=== PATIENT | female | born 1950 | race Caucasian/White ===

== ENCOUNTER → 2016-11-24 | Outpatient (CLI) | payer MEDICARE ==
--- NOTE | 2016-11-24 14:45 | MR ---
EXAMINATION TYPE: MR shoulder LT wo con DATE OF EXAM: 11/24/2016 11:50 AM COMPARISON: NONE HISTORY: Strain of muscle(s) and tendon(s) of the rotator cuff, weakness, pain left shoulder x 2.5 mo nths. TECHNIQUE: Multiplanar, multisequence imaging of the left shoulder is performed without contrast. FINDINGS: Rotator Cuff: There is complete disruption of the supraspinatus tendon. There is tendon retraction to nearly the acromioclavicular junction level. Fatty infiltration within the supraspinatus muscle is e vident. There may be some early fatty infiltration within the subscapularis muscle Acromioclavicular Joint: Hypertrophy without inferior spurring. Some superior acromioclavicular joint spurring is noted. Glenohumeral Joint: Glenoid labrum appears intact. Humeral head is elevated in relation to the glenoi d. Labrum: The labrum appears grossly intact given limitation of non-arthrogram study. Biceps Tendon: Long head of the biceps tendon appears to be anteriorly displaced from the bicipital g roove and is at the anterior spine. The tendon itself appears intact. Bone marrow signal: No focal abnormal marrow signal is appreciated. Other: There is a moderate joint effusion. Posterior subdeltoid fluid is noted adjacent to the rotato r cuff. Fluid is within the bicipital groove. IMPRESSION: 1. Complete tear of the supraspinatus tendon. 2. Retraction of the tendon to the acromioclavicular junction. 3. Fatty infiltration of the supraspinatus muscle. Some subscapularis muscle fatty infiltration may b e present. 4. Dislocation of the long head biceps tendon from the bicipital groove. 5. Moderate joint effusion #6 subluxation of the humeral head in relation to the glenoid
== END | disposition home or self-care (01) ==
LOC: RADMRIMAIN 11:10
PROVIDERS: ATTEND Family Medicine
DX: S46.912A Strain of unspecified muscle, fascia and tendon at shoulder and upper arm level, left arm, initial encounter (principal)

== ENCOUNTER → 2016-12-08 | Outpatient (CLI) | payer MEDICARE ==
[2016-12-08 13:51] LABS: Basophils # (A) 0.1 k/uL (0-0.2); Basophils % (A) 1 %; CH 30.5; CHCM 32.1; Eosinophils # (A) 0.1 k/uL (0-0.7); Eosinophils % (A) 1 %; HCT 46.2 % (34.0-46.0); HDW 2.37; HGB 14.5 gm/dL (11.4-16.0); Luc # (Auto) 0.21; Luc % (Auto) 3; Lymphocytes % (A) 24 %; MCH 29.9 pg (25.0-35.0); MCHC 31.3 g/dL (31.0-37.0); MCV 95.5 fL (80.0-100.0); Mean Platelet Volume 6.6; Monocytes # (A) 0.4 k/uL (0-1.0); Monocytes % (A) 4 %; Neutrophils # (A) 5.7 k/uL (1.3-7.7); Neutrophils % (A) 68 %; RBC 4.84 m/uL (3.80-5.40); RDW 13.6 % (11.5-15.5); WBC 8.5 k/uL (3.8-10.6); WBC (Perox) 8.71
[2016-12-08 14:05] LABS: Potassium 4.3 mmol/L (3.5-5.1)
== END | disposition home or self-care (01) ==
LOC: LABPAT 13:12
PROVIDERS: ATTEND Orthopaedic Surgery
DX: Z01.812 Encounter for preprocedural laboratory examination (principal); M75.42 Impingement syndrome of left shoulder
CPT/HCPCS: 80051; 85025

== ENCOUNTER 2016-12-23 07:23 | Day surgery (SDC) | payer MEDICARE ==
[2016-12-20 15:03] VITALS: BMI 34.9
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
[~2016-12-23 07:23] MED LIST: DEXAMETHASONE SOD PHOSPHATE 10 MG/ML 1 ML VIAL IV ONE; LACTATED RINGERS 1,000 ML IV SCH; MIDAZOLAM 2 MG/2 ML VIAL IV PRN; ceFAZolin 2 GM in SODIUM CHLORIDE 0.9% 100 ML IVPB ONE
[2016-12-23] MEDS: ONDANSETRON 4 MG/2 ML VIAL IVP ONE ×2 (07:45→12:11)
[2016-12-23] MEDS ORDERED: LIDOCAINE 1% 20 ML VIAL (10MG/ML) FOR IV START INTRADERMA ONE (07:45)
[2016-12-23] MEDS ORDERED: fentaNYL (PF) 50 MCG/ML 2 ML AMP IV ONE (08:06)
[2016-12-23] MEDS ORDERED: fentaNYL (PF) 50 MCG/ML 2 ML AMP ONE (09:01)
[2016-12-23] MEDS ORDERED: ROPIVACAINE 5 MG/ML 30 ML VIAL ONE (09:01)
[2016-12-23] MEDS ORDERED: ePHEDrine 50 MG/ML 1 ML AMP ONE (09:01)
[2016-12-23] MEDS ORDERED: LIDOCAINE 2%-EPI 1:100,000 20 ML VIAL ONE (09:01)
[2016-12-23] MEDS ORDERED: SUCCINYLCHOLINE CHLORIDE 100 MG/5 ML SYR IV ONE (09:01)
[2016-12-23] MEDS ORDERED: MIDAZOLAM 2 MG/2 ML VIAL ONE (09:01)
[2016-12-23] MEDS ORDERED: PROPOFOL 10 MG/ML 20 ML VIAL IV ONE (09:01)
[2016-12-23] MEDS ORDERED: LIDOCAINE 1% INJ 10MG/ML (20 ML MDV) ONE (09:01)
[2016-12-23] MEDS ORDERED: EPINEPHrine (PF) 1 ML in SODIUM CHLORIDE 0.9% IRRIGATIO 3,000 ML IRRIGATION ONE ×4 (09:36)
[2016-12-23] MEDS ORDERED: LACTATED RINGERS 1,000 ML IV ONE (10:36)
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
[2016-12-23 11:39] VITALS: TEMP 96.9
[2016-12-23] MEDS: HYDROmorphone 1 MG/ML 1 ML SYRINGE IVP PRN ×2 (12:04→12:23)
[2016-12-23] MEDS ORDERED: ONDANSETRON 4 MG/2 ML VIAL IVP ONE (12:53)
[2016-12-23] MEDS ORDERED: PROMETHAZINE INJ 25 MG/ML 1 ML VIAL IVPB ONE (13:39)
[2016-12-23 15:29] VITALS: BP 121/73; PULSE 91; RESP 18
== END 2016-12-23 14:50 | disposition home or self-care (01) ==
LOC: OR 07:23
PROVIDERS: ATTEND Orthopaedic Surgery
DX: S46.012A Strain of muscle(s) and tendon(s) of the rotator cuff of left shoulder, initial encounter (principal); S46.112A Strain of muscle, fascia and tendon of long head of biceps, left arm, initial encounter; S43.402A Unspecified sprain of left shoulder joint, initial encounter; V29.88XA Motorcycle rider (driver) (passenger) injured in other specified transport accidents, initial encounter; I10 Essential (primary) hypertension; E03.9 Hypothyroidism, unspecified; Z98.84 Bariatric surgery status; Z79.82 Long term (current) use of aspirin; Z79.1 Long term (current) use of non-steroidal anti-inflammatories (NSAID); Z79.899 Other long term (current) drug therapy
CPT/HCPCS: 64415; 29826; 29827; C1713 ×5; J2250; J1100; J2550; J0690; J2405; J0171; J2001; J3010; J1170; J2795; J0330; J2704

== ENCOUNTER → 2017-05-02 | Outpatient (CLI) | payer MEDICARE ==
[2017-05-02 15:48] VITALS: BP 142/76; PULSE 70; RESP 20; TEMP 97.9; BMI 37.1
--- NOTE | 2017-05-02 16:31 | P.BASOAP ---
Subjective Principal diagnosis: Morbid obesity Patient with poor follow-up. The patient has had frequent episodes of vomiting and dysphagia. This happens almost once or twice a week at this point. She started to eat high calorie foods because it passes through the band site easier. The patient has gained approximately 25 pounds since her last visit. She is still down from her preoperative weight of 290 and is currently on 223. The patient does not want the band emptied or removed. She is agreeable to an band loosening. She did have an upper GI when she was seen last 4 years ago and that was normal. Objective - Vital Signs Vital signs: Vital Signs Temp 97.9 F 05/02/17 15:40 Pulse 70 05/02/17 15:40 Resp 20 05/02/17 15:40 BP 142/76 05/02/17 15:40 Pulse Ox Intake & Output 05/01/17 05/02/17 05/02/17 18:59 06:59 18:59 Weight 101.196 kg - Exam Abdomen: Soft, nontender, nondistended Assessment/Plan (1) Morbid obesity Narrative/Plan: Plan will be loosened at this time. If the patient's symptoms persist we'll repeat upper GI. The patient's lap band port was palpated. The site was aseptically prepped. 1% lidocaine was infiltrated into the subcutaneous tissues through a diabetic syringe. The Abebe needle was advanced into the port. Aspiration took place. A total of 0.7 ml of fluid was evacuated, 5.5 mL left in band. Pressure was held and a sterile dressing was applied. Plan: Date: 05/02/17 Initial Weight: 101.196 kg Initial BMI: 37.1 Current Weight: 101.196 kg Current BMI: 37.1 Type of Surgery: Total Volume in Band: -0.7 Previous Volume: 0 Volume Removed: 0.7 Volume Added: 0 Band Size:
== END | disposition home or self-care (01) ==
LOC: BARWHC3 14:38
PROVIDERS: ATTEND Surgery
DX: E66.01 Morbid (severe) obesity due to excess calories (principal)
CPT/HCPCS: 99202

== ENCOUNTER → 2017-11-09 | Outpatient (CLI) | payer MEDICARE ==
[2017-11-09 09:19] LABS: Basophils # (A) 0.2 k/uL (0-0.2); Basophils % (A) 2 %; CH 30.3; CHCM 31.4; Eosinophils # (A) 0.2 k/uL (0-0.7); Eosinophils % (A) 2 %; HCT 47.6 % (34.0-46.0); HDW 2.42; HGB 14.4 gm/dL (11.4-16.0); Luc # (Auto) 0.16; Luc % (Auto) 2; Lymphocytes # (A) 2.1 k/uL (1.0-4.8); Lymphocytes % (A) 27 %; MCH 29.4 pg (25.0-35.0); MCHC 30.2 g/dL (31.0-37.0); MCV 97.4 fL (80.0-100.0); Mean Platelet Volume 7.5; Monocytes # (A) 0.4 k/uL (0-1.0); Monocytes % (A) 5 %; Neutrophils # (A) 4.8 k/uL (1.3-7.7); Neutrophils % (A) 62 %; RBC 4.88 m/uL (3.80-5.40); RDW 15.3 % (11.5-15.5); WBC 7.8 k/uL (3.8-10.6); WBC (Perox) 7.77
[2017-11-09 09:39] LABS: ALT 30 U/L (9-52); AST 26 U/L (14-36); Alkaline Phosphatase 89 U/L (38-126); Anion Gap 8 mmol/L; Blood Urea Nitrogen 11 mg/dL (7-17); Carbon Dioxide 30 mmol/L (22-30); Chloride 102 mmol/L (98-107); Cholesterol 197 mg/dL (<200); Glucose 104 mg/dL (74-99); HDL Cholesterol 84 mg/dL (40-60); Non-African American GFR(MDRD) >60 (>60 ml/min/1.73 sqM); Potassium 4.4 mmol/L (3.5-5.1); Sodium 140 mmol/L (137-145); Total Bilirubin 0.4 mg/dL (0.2-1.3); Total Protein 7.5 g/dL (6.3-8.2)
== END | disposition home or self-care (01) ==
LOC: LABWHC1 08:36
PROVIDERS: ATTEND Family Medicine
DX: Z00.00 Encounter for general adult medical examination without abnormal findings (principal); E03.9 Hypothyroidism, unspecified; I10 Essential (primary) hypertension; Z79.82 Long term (current) use of aspirin
CPT/HCPCS: 36415; 80053; 80061; 84439; 84443; 85025; 86803

== ENCOUNTER → 2017-12-15 | Outpatient (CLI) | payer MEDICARE ==
--- NOTE | 2017-12-19 10:18 | MM ---
Reason for exam: screening (asymptomatic). Last mammogram was performed 1 year and 4 months ago. History: Patient is postmenopausal and history of other cancer. Family history of breast cancer in maternal aunt. Physical Findings: A clinical breast exam by your physician is recommended on an annual basis and results should be correlated with mammographic findings. MG 3D Screening Mammo W/Cad Bilateral CC and MLO view(s) were taken. Prior study comparison: August 11, 2016, bilateral MG 3d screening mammo w/cad. July 14, 2014, mammogram, performed at [facility]. Finding: There is an intermediate concern, suspicious equal density (isodense), indistinct lobulated mass located 9 cm from the nipple in the upper outer quadrant, middle position of the left breast consistent with associated punctate calcifications. New finding since August 11, 2016 and July 14, 2014. ASSESSMENT: Incomplete: need additional imaging evaluation, BI-RAD 0 RECOMMENDATION: Special view mammogram of the left breast. If lesion persists on supplemental views, image directed ultrasound is recommended. [facility] will attempt to contact patient to return for supplemental views and ultrasound if indicated.
== END | disposition home or self-care (01) ==
LOC: RADMAMWWP 15:38
PROVIDERS: ATTEND Family Medicine
DX: Z12.31 Encounter for screening mammogram for malignant neoplasm of breast (principal)
CPT/HCPCS: 77063; 77067

== ENCOUNTER → 2018-01-01 | Day surgery (SDC) | payer MEDICARE ==
[2018-01-01 13:47] VITALS: RESP 16; TEMP 98; BMI 35.2
[2018-01-01 15:03] VITALS: BP 168/87; PULSE 70
--- NOTE | 2018-01-01 18:19 | MM ---
EXAMINATION TYPE: MG stereo VAD BX LT DATE OF EXAM: 01/01/2018 COMPARISON: 12/15/2017 and 12/25/2017 CLINICAL HISTORY: 67-year-old female referred for biopsy of left breast microcalcifications TECHNIQUE: Stereotactic guided core biopsy of the left breast. FINDINGS: The procedure of stereotactic guided core biopsy was explained to the patient. Benefits, alternatives, and risks were discussed. An informed consent was then obtained. [facility]. Shortness pathway was a CC from above approach. I performed the localization followed by the procedure. A vacuum assisted biopsy gun was used to obtain 6 core samples. The patient tolerated the procedure well without any immediate complication. The patient was kept in the radiology department for short stay after the procedure and then discharged home in stable condition. Targeted calcifications are identified in specimen mammogram. Post biopsy mammogram shows approximately 1.5 to 2 cm of superior migration relative to the targeted area of concern on the preprocedure images. A solitary round calcification booth the site near the targeted area. IMPRESSION: SUCCESSFUL, UNCOMPLICATED STEREOTACTIC GUIDED CORE BIOPSY OF LEFT BREAST UPPER OUTER QUADRANT MICROCALCIFICATIONS. NOTE 1.5 TO 2 CM OF SUPERIOR CLIP MIGRATION. A RESIDUAL ROUND CALCIFICATION BOOTH THE SITE NEAR THE TARGETED AREA. FULL PATHOLOGY RESULTS TO FOLLOW. Pathology Results: Benign BREAST, LEFT, CORE BIOPSY: FIBROADENOMA WITH CALCIFICATIONS AND BACKGROUND FIBROCYSTIC CHANGES. Recommendation Follow up mammogram of the left breast in 6 months. MTDD
== END ==
LOC: RADMAMWWP 13:15
PROVIDERS: ATTEND Surgery
DX: D24.2 Benign neoplasm of left breast (principal); N60.12 Diffuse cystic mastopathy of left breast; R92.1 Mammographic calcification found on diagnostic imaging of breast; Z85.828 Personal history of other malignant neoplasm of skin; Z80.3 Family history of malignant neoplasm of breast
CPT/HCPCS: 88305; 19081; A4648; J2001

== ENCOUNTER → 2018-07-02 | Outpatient (CLI) | payer MEDICARE ==
--- NOTE | 2018-07-03 09:47 | MM ---
Reason for exam: follow-up at short interval from prior study. Last mammogram was performed 6 months ago. History: Patient is postmenopausal and history of other cancer. Family history of breast cancer in maternal aunt. Benign MG stereo VAD BX LT of the left breast, January 01, 2018. Physical Findings: Nurse did not find any significant physical abnormalities on exam. MG 3D Diag Mammo W/Cad LT CC and MLO view(s) were taken of the left breast. Prior study comparison: December 25, 2017, left breast MG 3d work up w/cad LT. December 15, 2017, bilateral MG 3d screening mammo w/cad. August 11, 2016, bilateral MG 3d screening mammo w/cad. There are scattered fibroglandular densities. Left post biopsy change. Superior marker migration noted. These results were verbally communicated with the patient and result sheet given to the patient on 07/02/18. ASSESSMENT: Benign, BI-RAD 2 RECOMMENDATION: Return to routine screening mammogram schedule for both breasts. Patient will be due in November 2018 for her bilateral screeming.
== END | disposition home or self-care (01) ==
LOC: RADMAMWWP 09:00
PROVIDERS: ATTEND Surgery
DX: R92.8 Other abnormal and inconclusive findings on diagnostic imaging of breast (principal)
CPT/HCPCS: 77065; G0279; 77061

== ENCOUNTER → 2018-11-27 | Outpatient (CLI) | payer MEDICARE ==
--- NOTE | 2018-11-27 15:29 | P.BASOAP ---
Subjective Progress Note Date: 11/27/18 Principal diagnosis: Abdominal pain Patient here today in the bariatric clinic for evaluation of abdominal pain. Last week she had 2-3 days of intermittent upper abdominal pain with radiation to the back. She had episodes of nausea and vomiting. Pain was crampy at times. No history of similar events in the past. She went to the ER however there are quite busy so she went home as her pain improved. No rectal bleeding or melena. No fevers. Patient is known to our office from previous lap band placement. Last visit in April 2017. At that time band was loosened from 6.2- 5.5 mL. Patient feels her level of restriction now was adequate. Rare episodes of dysphagia. She has an elective colonoscopy in January scheduled. Objective - Exam Abdomen: Soft, nontender, nondistended Assessment/Plan (1) Upper abdominal pain Narrative/Plan: At this time in order to evaluate the patient's pain will order ultrasound abdomen. Her pain is currently absent. If the ultrasound is negative would continue observation. If her pain recurs however would add CAT scan abdomen and pelvis. We'll also add EGD to her upcoming colonoscopy. We'll keep the band at 5.5 mL for now. Plan: Date: Initial Weight: 101.196 kg Initial BMI: Current Weight: Current BMI: Type of Surgery: Total Volume in Band: -0.7 Previous Volume: Volume Removed: Volume Added: Band Size:
[2018-11-27 15:44] VITALS: BP 165/91; PULSE 80; RESP 16; TEMP 98.4; BMI 35.2
== END | disposition home or self-care (01) ==
LOC: BARWHC3 14:33
PROVIDERS: ATTEND Surgery
DX: R10.10 Upper abdominal pain, unspecified (principal)
CPT/HCPCS: 99212

== ENCOUNTER → 2018-11-28 | Outpatient (CLI) | payer MEDICARE ==
--- NOTE | 2018-11-28 08:50 | US ---
EXAMINATION TYPE: US gallbladder DATE OF EXAM: 11/28/2018 COMPARISON: NONE CLINICAL HISTORY: R10.11 Right Upper Quad pain. Epigastric pain, NPO EXAM MEASUREMENTS: Liver Length: 15.7 cm Gallbladder Wall: 0.1 cm CHD: 0.6 cm Right Kidney: 11.4 x 4.9 x 4.6 cm Pancreas: Tail obscured by overlying bowel gas Liver: wnl Gallbladder: wnl Evidence for sonographic Malone's sign: neg CBD: Obscured by overlying bowel gas Right Kidney: Lateral complex lesion seen in mid kidney - 2.7x 2.2 x 2.5 cm IMPRESSION: 1. Complex right renal lesion measuring up to 2.8 cm for which further characterization with three-ph ase enhanced CT abdomen is recommended. 2. No sonographic evidence of cholelithiasis or acute cholecystitis. Common hepatic duct is within no rmal limits for the patient's age. Common bile duct is obscured by bowel gas.
== END | disposition home or self-care (01) ==
LOC: RADUSWWP 07:20
PROVIDERS: ATTEND Surgery
DX: N28.9 Disorder of kidney and ureter, unspecified (principal)
CPT/HCPCS: 76705

== ENCOUNTER → 2018-12-07 | Outpatient (CLI) | payer MEDICARE ==
--- NOTE | 2018-12-07 16:29 | CT ---
EXAMINATION TYPE: CT abdomen wo/w con DATE OF EXAM: 12/07/2018 COMPARISON: None HISTORY: right side renal lesion CT DLP: 1486.2 mGycm CONTRAST: CT scan of the abdomen and pelvis is performed with Oral Contrast and with IV Contrast, patient injec kika with 100 mL of Isovue 300. FINDINGS: LUNG BASES-: No visible nodule. No infiltrate. LIVER/GB: No calcified gallstones. No space occupying hepatic lesion. Biliary tree is of normal ca liber. PANCREAS: No inflammation. No distinct mass. SPLEEN: No splenic enlargement. No lesion seen. ADRENALS: No nodule. No thickening. KIDNEYS/BLADDER: No hydronephrosis. No nephrolithiasis. Simple right renal cyst measuring 2.5 cm. N o complicating factors. No solid mass is identified. No additional lesions appreciated at this time. Hounsfield unit measurement of 7. BOWEL: Normal appendix. Normal bowel caliber. No inflammation. Gastric banding device noted. LYMPH NODES: No greater than 1cm abdominal or pelvic lymph nodes are appreciated. AORTA: No significant abnormality. OSSEOUS STRUCTURES: No significant abnormality is seen. OTHER: No significant additional abnormality is seen. IMPRESSION: 1. Simple appearing cyst right kidney.
== END | disposition home or self-care (01) ==
LOC: RADCTMAIN 14:45
PROVIDERS: ATTEND Surgery
DX: N28.1 Cyst of kidney, acquired (principal)
CPT/HCPCS: 82565; 84520; 74170; 36415; Q9967

== ENCOUNTER → 2018-12-20 | Outpatient (CLI) | payer MEDICARE ==
--- NOTE | 2018-12-20 16:08 | BD ---
EXAMINATION TYPE: Axial Bone Density DATE OF EXAM: 12/20/2018 COMPARISON: NONE CLINICAL HISTORY: Height: 5 FT 4 IN Weight: 212 FRAX RISK QUESTIONS: RISK FACTORS HISTORY OF: Active: YES Postmenopausal woman: AGE 48 MEDICATIONS: Thyroid Medications: YES Which medication: LEVOTHYROXINE How Long: APPROX 10 YEARS Additional Medications: LEVOTHYROXINE, AMLODIPINE,VIT D , BABY ASPIRIN Additional History: PT HAD LAP BAND 10 YEARS AGO EXAM MEASUREMENTS: Bone mineral densitometry was performed using the [employer]. Bone mineral density as measured about the Lumbar spine is: ----- L1-L4(G/cm2): 1.270 T Score Values are as follows: ----- L2: -0.2 ----- L3: 1.2 ----- L4: 1.5 ----- L1-L4: 0.8 BASELINE Bone mineral density about the R hip (g/cm2): 0.846 Bone mineral density about the L hip (g/cm2): 0.863 T Score values are as follows: -----R Neck: -1.4 -----L Neck: -1.3 -----R Total: -0.8 -----L Total: -1.1 BASELINE IMPRESSION: Osteopenia (T Score between -2.5 and -1). There is slightly increased risk of fracture and the patient may be considered for treatment. Re-Screen 2-5 years. NOTE: T-SCORE=SD OF THE YOUNG ADULT MEAN.
== END ==
LOC: RADBDWWP 14:10
PROVIDERS: ATTEND Family Medicine
DX: M85.80 Other specified disorders of bone density and structure, unspecified site (principal)
CPT/HCPCS: 77080

== ENCOUNTER → 2021-02-24 | Outpatient (CLI) | payer MEDICARE ==
--- NOTE | 2021-02-25 11:01 | BD ---
EXAMINATION TYPE: Axial Bone Density DATE OF EXAM: 02/24/2021 COMPARISON: NONE CLINICAL HISTORY: Height: 65 Weight: 209.4 FRAX RISK QUESTIONS: Alcohol (3 or more units per day): no Family History (Parent hip fracture): no Glucocorticoids (More than 3mos): no (Ex: prednisone, prednisolone, methylprednisolone, dexamethasone, and hydrocortisone). History of Fracture in Adulthood: no Secondary Osteoporosis: 1. Type 1 Diabetes: no 2. Hyperthyroidism: no 3. Menopause before 45: no 4. Malnutrition: no 5. Chronic liver disease: no Rheumatoid Arthritis: no Current Tobacco Use: no RISK FACTORS HISTORY OF: Surgery to Spine/Hip(right/left)/Wrist (right/left): no Family History of Osteoporosis: no Active: yes Diet low in dairy products/other sources of calcium: yes Postmenopausal woman: late age 39;s Lost more than 2 inches in height since high school: no MEDICATIONS:blood pressure meds, vit d, Thyroid Medications: synthroid How Lon years Additional History: EXAM MEASUREMENTS: Bone mineral densitometry was performed using the [employer] System. Bone mineral density as measured about the Lumbar spine is: ----- L1-L4(G/cm2): 1.311 T Score Values are as follows: ----- L2: -0.1 ----- L3: 1.9 ----- L4: 1.7 ----- L1-L4: 1.1 Bone mineral density : baseline Bone mineral density about the R hip (g/cm2): 0.873 Bone mineral density about the L hip (g/cm2): 0.834 T Score values are as follows: -----R Neck: -1.2 -----L Neck: -1.5 -----R Total: -0.9 -----L Total: -1.5 Bone mineral density : baseline IMPRESSION: Osteopenia NOTE: T-SCORE=SD OF THE YOUNG ADULT MEAN.
--- NOTE | 2021-02-26 12:12 | MM ---
Reason for exam: screening (asymptomatic). Last mammogram was performed 2 years and 8 months ago. History: Patient is postmenopausal and history of other cancer. Family history of breast cancer in maternal aunt. Benign MG stereo VAD BX LT of the left breast, January 01, 2018. Physical Findings: A clinical breast exam by your physician is recommended on an annual basis and results should be correlated with mammographic findings. MG 3D Screening Mammo W/Cad Bilateral CC and MLO view(s) were taken. Prior study comparison: July 02, 2018, left breast MG 3d diag mammo w/cad LT. December 25, 2017, left breast MG 3d work up w/cad LT. There are scattered fibroglandular densities. Previous mammotome biopsy in the left breast with stable associated asymmetric density on the CC view. No significant changes when compared with prior studies. ASSESSMENT: Benign, BI-RAD 2 RECOMMENDATION: Routine screening mammogram of both breasts in 1 year.
== END | disposition home or self-care (01) ==
LOC: RADMAMWWP 15:46
PROVIDERS: ATTEND Family Medicine
DX: Z12.31 Encounter for screening mammogram for malignant neoplasm of breast (principal); M85.89 Other specified disorders of bone density and structure, multiple sites; Z78.0 Asymptomatic menopausal state; Z80.3 Family history of malignant neoplasm of breast
CPT/HCPCS: 77063; 77067; 77080

== ENCOUNTER 2021-06-14 14:18 | Emergency (ER) | payer OTHER, MEDICARE ==
[2021-06-14 14:26] LABS: Glucose,Whole Blood 121 mg/dL (75-99)
[2021-06-14] MEDS ORDERED: DIPH,PERTUS(ACELL)TETVAC-LF 0.5 ML VIAL IM ONE (14:28)
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
[2021-06-14 14:49] LABS: Basophils # (A) 0.1 k/uL (0-0.2); Basophils % (A) 0 %; Eosinophils # (A) 0.1 k/uL (0-0.7); Eosinophils % (A) 1 %; HCT 39.8 % (34.0-46.0); HGB 12.8 gm/dL (11.4-16.0); Lymphocytes # (A) 1.6 k/uL (1.0-4.8); Lymphocytes % (A) 9 %; MCH 29.9 pg (25.0-35.0); MCHC 32.2 g/dL (31.0-37.0); Mean Platelet Volume 7.9; Monocytes # (A) 0.7 k/uL (0-1.0); Monocytes % (A) 4 %; Neutrophils # (A) 14.6 k/uL (1.3-7.7); Neutrophils % (A) 85 %; Platelet Count 337 k/uL (150-450); RBC 4.29 m/uL (3.80-5.40); RDW 14.4 % (11.5-15.5); WBC 17.2 k/uL (3.8-10.6)
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
[2021-06-14 15:02] LABS: ALT 16 U/L (4-34); AST 31 U/L (14-36); African American GFR (CKD) >90 (>60 ml/min/1.73 sqM); Albumin 4.2 g/dL (3.5-5.0); Alcohol <10 mg/dL; Alkaline Phosphatase 88 U/L (38-126); Anion Gap 9 mmol/L; Blood Urea Nitrogen 15 mg/dL (7-17); Calcium 9.2 mg/dL (8.4-10.2); Carbon Dioxide 24 mmol/L (22-30); Chloride 107 mmol/L (98-107); Glucose 130 mg/dL (74-99); Non-African American GFR(CKD) 88 (>60 ml/min/1.73 sqM); Potassium 3.7 mmol/L (3.5-5.1); Sodium 140 mmol/L (137-145); Total Bilirubin 0.3 mg/dL (0.2-1.3); Total Protein 6.8 g/dL (6.3-8.2)
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
[2021-06-14 15:17] LABS: Prothrombin Time 10.8 sec (9.0-12.0)
[2021-06-14 15:19] LABS: Partial Thromboplastin Time 20.4 sec (22.0-30.0)
[2021-06-14] MEDS ORDERED: ONDANSETRON 4 MG/2 ML VIAL IVP STA (15:42)
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
[2021-06-14 15:59] LABS: Appearance,Urine Clear (Clear); Bilirubin,Urine Negative (Negative); Blood,Urine Negative (Negative); Color,Urine Light Yellow; Glucose,Urine (UA) Negative (Negative); Ketones,Urine Trace (Negative); Leukocyte Esterase,Urine Negative (Negative); Nitrite,Urine Negative (Negative); PH, Urine 5.5 (5.0-8.0); Protein,Urine Negative (Negative); Urobilinogen,Urine <2.0 mg/dL (<2.0)
[2021-06-14 16:16] LABS: Amphetamine Screen,Urine Not Detected (NotDetected); Barbiturate Screen,Urine Not Detected (NotDetected); Benzodiazepines Screen,Urine Not Detected (NotDetected); Cocaine Screen,Urine Not Detected (NotDetected); Methadone Screen, Urine Not Detected (NotDetected); Opiate Screen,Urine Not Detected (NotDetected); Oxycodone Screen, Urine Not Detected (NotDetected); Phencyclidine Screen,Urine Not Detected (NotDetected); Tricyclic Antidepressant,Urine Not Detected (NotDetected); Urn Cannabinoid Scrn Not Detected (NotDetected)
[2021-06-14 16:41] VITALS: BP 140/65; PULSE 77; RESP 18; TEMP 98.1
== END 2021-06-14 16:41 | disposition home or self-care (01) ==
LOC: EC 14:18
DX: S40.212A Abrasion of left shoulder, initial encounter (principal); S00.81XA Abrasion of other part of head, initial encounter; S30.811A Abrasion of abdominal wall, initial encounter; S60.512A Abrasion of left hand, initial encounter; S60.511A Abrasion of right hand, initial encounter; I10 Essential (primary) hypertension; E07.9 Disorder of thyroid, unspecified; Z87.891 Personal history of nicotine dependence; Z79.890 Hormone replacement therapy; Z79.899 Other long term (current) drug therapy; Z23 Encounter for immunization; V89.2XXA Person injured in unspecified motor-vehicle accident, traffic, initial encounter; Y92.410 Unspecified street and highway as the place of occurrence of the external cause
CPT/HCPCS: 36415; 93005; 86900; 86901; 80053; 84484; 85025; 85610; 85730; 86850; 81003; 80306; 80320; 72170; 73030; 73130; 71045; 72125; 70450; 71260; 74177; 90715; 99284; 96374; 90471; J2405; Q9967

== ENCOUNTER → 2022-03-28 | Outpatient (CLI) | payer MEDICARE, BC ==
--- NOTE | 2022-03-30 12:59 | MM ---
Reason for exam: screening (asymptomatic). Last mammogram was performed 1 year and 1 month ago. History: Patient is postmenopausal and history of other cancer. Family history of breast cancer in maternal aunt. Benign MG stereo VAD BX LT of the left breast, January 01, 2018. Physical Findings: A clinical breast exam by your physician is recommended on an annual basis and results should be correlated with mammographic findings. MG 3D Screening Mammo W/Cad Bilateral CC and MLO view(s) were taken. Prior study comparison: February 24, 2021, bilateral MG 3d screening mammo w/cad. July 02, 2018, left breast MG 3d diag mammo w/cad LT. There are scattered fibroglandular densities. Previous mammotome biopsy in the left breast. No significant changes when compared with prior studies. ASSESSMENT: Benign, BI-RAD 2 RECOMMENDATION: Routine screening mammogram of both breasts in 1 year.
== END | disposition home or self-care (01) ==
LOC: RADMAMWWP 14:40
PROVIDERS: ATTEND Family Medicine
DX: Z12.31 Encounter for screening mammogram for malignant neoplasm of breast (principal)
CPT/HCPCS: 77063; 77067

== ENCOUNTER → 2022-10-28 | Outpatient (CLI) | payer MEDICARE, BC ==
--- NOTE | 2022-10-28 11:33 | PE ---
EXAMINATION TYPE: PET CT fusion whole body DATE OF EXAM: 10/28/2022 COMPARISON: NONE HISTORY: History of malignant melanoma excised from top of left head. TECHNIQUE: Following the intravenous administration of 9.66 mCi of F-18 FDG, whole body images are p erformed from the top of head to bottom of the feet. Images are reviewed on the computer in the luz nal, axial, and sagittal planes. Reconstructed rotating images are created on independent workstatio n and reviewed on the computer. A localization and attenuation correction CT is performed in conjun ction with the PET scan. Blood glucose level equals 104. SCAN: Initial Scan FINDINGS: HEAD AND NECK: No areas of abnormal hypermetabolic uptake. CHEST, MEDIASTINUM, AND HILAR REGION: No areas of abnormal hypermetabolic uptake. ABDOMEN AND PELVIS: Normal excretion. No areas of abnormal hypermetabolic uptake. OSSEOUS STRUCTURES: No areas of abnormal hypermetabolic uptake. Lower extremities: No areas of abnormal hypermetabolic uptake. Mild uptake along the lateral distal l eft leg muscle could reflect inflammatory change. OTHER CT: Surgical clips in the left neck are present. Mild cardiomegaly with coronary artery calcifi cation is seen. Lap band device is present. Slight scoliotic curvature in the spine with multilevel spurring. There is asymmetric moderate size left suprapatellar joint effusion. IMPRESSION: No abnormal hypermetabolic uptake to suggest residual or metastatic melanoma.
== END | disposition home or self-care (01) ==
LOC: RADPETMAIN 08:50
PROVIDERS: ATTEND Internal Medicine Hematology & Oncology
DX: C43.4 Malignant melanoma of scalp and neck (principal)
CPT/HCPCS: 78816; A9552

== ENCOUNTER → 2023-09-28 | Outpatient (CLI) | payer MEDICARE, BC ==
--- NOTE | 2023-09-28 13:48 | PE ---
EXAMINATION TYPE: PET CT fusion skull to thigh DATE OF EXAM: 09/28/2023 CLINICAL INDICATION:Female, 73 years old with history of C43.4 Melanoma; TECHNIQUE: Following the intravenous administration of 10.9 mCi of F-18 FDG, whole body images are performed from the skull base to the midthigh. Images are reviewed on the computer in the coronal, a xial, and sagittal planes. Reconstructed rotating images are created on independent workstation and reviewed on the computer. A non-contrast CT is performed in conjunction with the PET scan. Glucose level 108 mg/dL CT DLP: 1095 mGycm, Automated exposure control for dose reduction was used. COMPARISON: CT 06/14/2021, PET/CT 03/24/2023, and 10/28/2022 FINDINGS: Mediastinal SUV mean is 2.6. Hepatic parenchyma SUV mean is 3.4. SKULL BASE AND NECK: * Posterior neck lymph node which is tiny which appeared on the prior exams and measures 2 mm. This did not have uptake on prior exams. There is mild FDG activity in today's exam Max SUV 4.4 which is n ew. CHEST, MEDIASTINUM, AND HILAR REGION: No suspicious radiotracer activity. ABDOMEN AND PELVIS: No suspicious radiotracer activity. OSSEOUS STRUCTURES: No suspicious radiotracer activity. LOWER EXTREMITIES: No suspicious radiotracer activity. OTHER CT: Surgical clips in the left neck are present. Mild cardiomegaly with coronary artery calcifi cation. Lap band device is present. Slight scoliotic curvature in the spine with multilevel spurring. There is asymmetric left suprapatellar joint effusion. IMPRESSION: Single 2 mm focus of uptake in the right neck, while the CT finding was apparent on prior exams datin g back to 10/28/2022 and is similar in size the FDG uptake was not seen on priors. Finding may have ev en been present on 06/14/2021. Malignancy not excluded. No additional sites identified.
== END | disposition home or self-care (01) ==
LOC: RADPETMAIN 10:06
PROVIDERS: ATTEND Internal Medicine Hematology & Oncology
DX: C43.4 Malignant melanoma of scalp and neck (principal); R93.7 Abnormal findings on diagnostic imaging of other parts of musculoskeletal system
CPT/HCPCS: 78815; A9552

== ENCOUNTER → 2024-01-04 | Outpatient (CLI) | payer MEDICARE, BC ==
--- NOTE | 2024-01-07 16:27 | PE ---
EXAMINATION TYPE: PET CT fusion skull to thigh DATE OF EXAM: 01/04/2024 COMPARISON: No recent pertinent CT Prior PET/CT: 09/28/2023 HISTORY: Melanoma TECHNIQUE: Following the intravenous administration of 11.55 mCi of F-18 FDG, whole body images are performed from the skull base to the midthigh. Images are reviewed on the computer in the coronal, a xial, and sagittal planes. Reconstructed rotating images are created on independent workstation and reviewed on the computer. A localization and attenuation correction CT is performed in conjunction with the PET scan. DLP: 1097.90 mGycm SCAN: Subsequent Blood glucose: 98 mg/dL Average Mediastinum SUV: 2.59 Average Liver SUV: 3.29 FINDINGS: Head: No obvious focal areas of marked increased uptake within the brain is identified. MRI is more s ensitive for melanoma brain metastases. NECK: No abnormal uptake THORAX: There is some mild uptake within the right axillary lymph node, image 102, SUV 3.89. Previous posterior neck uptake not identified on the current exam. ABDOMEN: No abnormal uptake PELVIS: No abnormal uptake LOWER EXTREMITIES: No abnormal uptake. Distal lower extremities below the knees are not included with in the [id number]. OSSEOUS STRUCTURES: No abnormal uptake LOCALIZATION CT: Small focus of increased density within the lingula at the left lung base. No abnorm al uptake. SUV 0.48. COMPARISON: Previous posterior neck uptake not identified. Uptake within the right axilla is new. IMPRESSION: 1. New uptake within a right axillary lymph node may be a new metastasis. 2. No additional suspicious uptake on the current PET/CT.
== END | disposition home or self-care (01) ==
LOC: RADPETMAIN 10:50
PROVIDERS: ATTEND Internal Medicine Hematology & Oncology
DX: C43.4 Malignant melanoma of scalp and neck (principal)
CPT/HCPCS: 78815; A9552

== ENCOUNTER → 2024-02-08 | Outpatient (CLI) | payer MEDICARE, BC ==
--- NOTE | 2024-02-09 11:29 | MM ---
Reason for Exam: Screening (asymptomatic). Last mammogram was performed 1 year(s) and 10 month(s) ago. Patient History: Menarche at age 12. First Full-Term at age 16. Postmenopausal. Other cancer. 01/01/2018, Benign Core Biopsy on the left side. Maternal aunt had breast cancer. Risk Values: Karishma 5 year model risk: 1.5%. NCI Lifetime model risk: 3.5%. Prior Study Comparison: 07/02/2018 Left Diagnostic Mammogram, [facility]. 02/24/2021 Bilateral Screening Mammogram, [facility]. 03/28/2022 Bilateral Screening Mammogram, [facility]. Tissue Density: There are scattered areas of fibroglandular density. Findings: Analyzed By CAD. There is no suspicious group of microcalcifications or new suspicious mass in either breast. Benign-appearing calcifications. Surgical clip left breast. Overall Assessment: Benign, BI-RAD 2 Management: Screening Mammogram of both breasts in 1 year. . Patient should continue monthly self-breast exams. A clinical breast exam by your physician is recommended on an annual basis. This exam should not preclude additional follow-up of suspicious palpable abnormalities. Note on Karishma scores and lifetime risk: 1. A Karishma score greater than 3% is considered moderate risk. If this is the case, consider specialist referral to assess eligibility for a risk reducing agent. 2. If overall lifetime risk for the development of breast cancer is 20% or higher, the patient may qualify for future screening with alternating mammogram and breast MRI. Electronically signed and approved by: Cristobal Samaniego M.D. Radiologis
== END | disposition home or self-care (01) ==
LOC: RADMAMWWP 13:56
PROVIDERS: ATTEND Family Medicine
DX: Z12.31 Encounter for screening mammogram for malignant neoplasm of breast (principal); Z80.3 Family history of malignant neoplasm of breast; Z78.0 Asymptomatic menopausal state
CPT/HCPCS: 77063; 77067

== ENCOUNTER → 2024-03-12 | Outpatient (CLI) | payer MEDICARE, BC ==
[2024-03-12 15:44] VITALS: BP 143/86; PULSE 82; TEMP 97.9
--- NOTE | 2024-03-12 16:30 | P.BASOAP ---
Subjective Progress Note Date: 03/12/24 Principal diagnosis: Morbid obesity 73-year-old female known to our service. Unfortunately since she was last seen by me she was diagnosed with metastatic melanoma. She has been on and off treatment since then. For the last few months she has had increasing dysphagia. Even has difficulties with liquids at times. Her next PET scan is in April. She thinks she would be considered in remission currently. Patient thinks her band is empty. Objective - Vital Signs Vital signs: Vital Signs Temp 97.9 F 03/12/24 14:56 Pulse 82 03/12/24 14:56 Resp BP 143/86 03/12/24 14:56 Pulse Ox FiO2 - Exam Abdomen: Soft, nontender, nondistended Assessment/Plan (1) Morbid obesity Narrative/Plan: 73-year-old female with dysphagia. Patient thought her band was emptied. Her band was accessed and in fact there was fluid there. Only 4 cc was removed even though there was a bit more in there because she was having tightness in the substernal location which is not atypical for a band that is too tight. Will monitor the patient's symptoms closely. She will follow-up in 1 month. Depending on the patient's symptoms we may either take more fluid out, observe, proceed with band removal, or check upper GI at that time. The patient's lap band port was palpated. The site was aseptically prepped. The Abebe needle was advanced into the port. A total of 4 ml of fluid was removed. Pressure was held and a sterile dressing was applied. Plan: Date: 03/12/24 Initial Weight: 101.196 kg Initial BMI: Current Weight: Current BMI: Type of Surgery: Total Volume in Band: 1.5 Previous Volume: Volume Removed: 4 Volume Added: Band Size:
== END ==
LOC: BARWHC3 13:49
PROVIDERS: ATTEND Surgery
DX: E66.01 Morbid (severe) obesity due to excess calories (principal); R13.10 Dysphagia, unspecified; Z87.891 Personal history of nicotine dependence
CPT/HCPCS: 43999

== ENCOUNTER → 2024-04-23 | Outpatient (CLI) | payer MEDICARE, BC ==
[2024-04-23 13:41] VITALS: BP 119/70; PULSE 84; TEMP 98.1; BMI 37.8
--- NOTE | 2024-04-23 14:39 | P.BASOAP ---
Subjective Progress Note Date: 04/23/24 Principal diagnosis: Morbid obesity Patient returns for recheck. She was last seen a month or so ago. She had 4 cc removed. This alleviated all of her symptoms. No dysphagia or vomiting. Due for PET scan next week. Objective - Vital Signs Vital signs: Vital Signs Temp 98.1 F 04/23/24 13:38 Pulse 84 04/23/24 13:38 Resp BP 119/70 04/23/24 13:38 Pulse Ox FiO2 Intake & Output 04/22/24 04/23/24 04/23/24 18:59 06:59 18:59 Weight 102.965 kg - Exam Abdomen: Soft, nontender, nondistended Assessment/Plan (1) Morbid obesity Narrative/Plan: 73-year-old female doing well after loosening her band. Patient's band is mostly empty at this time. Patient does not want fluid added back to the band. Given her cancer diagnosis plan for now is to continue with close observation. She will contact me with any recurrent symptoms. Plan: Date: 04/23/24 Initial Weight: 101.196 kg Initial BMI: 37.1 Current Weight: 102.965 kg Current BMI: 37.8 Type of Surgery: Total Volume in Band: 1.5 Previous Volume: Volume Removed: Volume Added: Band Size:
== END ==
LOC: BARWHC3 13:28
PROVIDERS: ATTEND Surgery
DX: E66.01 Morbid (severe) obesity due to excess calories (principal); Z98.84 Bariatric surgery status; Z87.891 Personal history of nicotine dependence; Z68.37 Body mass index [BMI] 37.0-37.9, adult
CPT/HCPCS: 99211

== ENCOUNTER → 2024-04-25 | Outpatient (CLI) | payer MEDICARE, BC ==
--- NOTE | 2024-04-27 15:39 | PE ---
EXAMINATION TYPE: PET CT fusion skull to thigh DATE OF EXAM: 04/25/2024 COMPARISON: No recent pertinent CT. Prior PET/CT: 01/04/2024 HISTORY: Melanoma TECHNIQUE: Following the intravenous administration of 10.32 mCi of F-18 FDG, whole body images are performed from the top of the skull to the mid calf. Images are reviewed on the computer in the cor onal, axial, and sagittal planes. Reconstructed rotating images are created on independent workstati on and reviewed on the computer. A localization and attenuation correction CT is performed in conju nction with the PET scan. DLP: 1142.23 mGycm SCAN: Subsequent Blood glucose: 104 mg/dL Average Mediastinum SUV: 2.63 Average Liver SUV: 3.41 FINDINGS: HEAD and NECK: No abnormal uptake THORAX: Faint uptake may be within the right axillary region, image 102, SUV 4.27, mildly increased f rom comparison SUV of 3.89. ABDOMEN: No abnormal uptake PELVIS: No abnormal uptake OSSEOUS STRUCTURES: No abnormal uptake LOCALIZATION CT: Unremarkable COMPARISON: Similar to minimally increased SUV in the right axillary lymph node. No new areas of upta ke are identified. IMPRESSION: 1. Similar to slightly increased SUV within the right axillary lymph node. This was present previous ly. 2. No new foci of uptake to suggest new metastasis.
== END | disposition home or self-care (01) ==
LOC: RADPETMAIN 11:30
PROVIDERS: ATTEND Internal Medicine Hematology & Oncology
DX: C43.4 Malignant melanoma of scalp and neck (principal)
CPT/HCPCS: 78815; A9552

== ENCOUNTER → 2024-08-22 | Outpatient (CLI) | payer MEDICARE, BC ==
--- NOTE | 2024-08-23 18:48 | PE ---
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 Images are reviewed on the computer in the coronal, axial, and sagittal planes. Reconstructed rotating images are created on independent workstation and reviewed on the computer. A non-contrast CT is performed in conjunction with the PET scan. Glucose level 116 mg/dL CT DLP: 1229 mGycm, Automated exposure control for dose reduction was used. COMPARISON: CT None, PET/CT 04/25/2024, 01/04/2024, 09/28/2023, 03/24/2023, 10/28/2022, MRI: None FINDINGS: Mediastinal SUV mean is 3.4. Hepatic parenchyma SUV mean is 5.0. SKULL BASE AND NECK: No suspicious radiotracer activity. Physiologic activity within the vocal cords. CHEST, MEDIASTINUM, AND HILAR REGION: Right axillary lymph node radiotracer uptake with a maximum SUV of 3.3, previously 4.3. ABDOMEN AND PELVIS: New mildly increased uptake within the left adrenal gland and adjacent nonenlarged lymph node with a maximum SUV of 7.3. Likely physiologic uptake throughout the bowel. MUSCULOSKELETAL STRUCTURES: New single focus of focal radiotracer uptake identified within the dorsal left hand around to the fou rth metacarpal region with a maximum SUV of 11.3. Radiotracer activity from degenerative changes in the bilateral AC and shoulder joints. OTHER CT: Bilateral aphakia. Surgical clips in the left neck are present. Mild cardiomegaly with luz nary artery calcification. Atherosclerotic calcification of the aorta and its branches. Patchy perihi lar opacities likely representing air trapping. Lap band device is present. Slight scoliotic curvatur e in the spine with multilevel spurring. Small bilateral knee joint effusions. IMPRESSION: 1. New focus of radiotracer uptake within the left hand around the fourth metacarpal region. Additio nal new mild radiotracer uptake within the left adrenal gland and adjacent nonenlarged para-aortic ly mph node. Raises concern for new metastatic melanoma foci. 2. Similar to slightly decreased radiotracer uptake within the previously seen right axillary lymph node. [facility], , 08/23/2024 6:46 PM
== END | disposition home or self-care (01) ==
LOC: RADPETMAIN 10:50
PROVIDERS: ATTEND Internal Medicine Hematology & Oncology
DX: C43.4 Malignant melanoma of scalp and neck (principal)
CPT/HCPCS: 78815; A9552

== ENCOUNTER → 2024-11-25 | Outpatient (CLI) | payer MEDICARE, BC ==
[2024-11-25 14:36] LABS: African American GFR (CKD) 87 (>60 ml/min/1.73 sqM); Blood Urea Nitrogen 17 mg/dL (7-17); Non-African American GFR(CKD) 76 (>60 ml/min/1.73 sqM)
--- NOTE | 2024-11-25 16:43 | CT ---
EXAMINATION TYPE: CT ChestAbdPelvis w con CT DLP: 1761 mGycm, Automated exposure control for dose reduction was used. 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 Oral contrast was administered. Two-dimensional coronal an d sagittal reconstructions were obtained. Findings: CHEST: LUNGS/ PLEURA: No pleural effusion, pneumothorax, or focal consolidation. No suspicious pulmonary nod ule or mass. Scattered reticular scarring. No honeycombing. AIRWAY: Patent and unremarkable.. HEART: Size within normal limits.No pericardial effusion. Mild coronary calcifications. MEDIASTINUM: No evidence of adenopathy. VASCULATURE: No aortic aneurysm. Mild atherosclerotic calcification of the aorta and its branches. MUSCULOSKELETAL: Mild disc degeneration changes are present throughout the thoracolumbar spine. No ag gressive osseous lesion. SOFT TISSUES/LYMPH NODES: Stable mildly prominent right axillary lymph node measuring up to 6 mm shor t axis. LOWER NECK: The thyroid is atrophic or surgically absent.. ABDOMEN: ABDOMEN LIVER: Right hepatic dome calcification granuloma. GALLBLADDER AND BILE DUCTS: Unremarkable. PANCREAS: Unremarkable. SPLEEN: Unremarkable. ADRENAL GLANDS: Unremarkable. KIDNEYS AND URETERS: No evidence of hydronephrosis or renal calculus. The kidneys enhance symmetrical ly. Stable bilateral renal cysts with largest within the upper pole the right kidney measured at 2.3 cm. Contrast is demonstrated within both collecting systems on the delayed phase. PELVIS BLADDER: Incompletely distended but grossly unremarkable. REPRODUCTIVE: Unremarkable. ABDOMEN & PELVIS STOMACH AND BOWEL: Postsurgical changes from gastric lap band. Small hiatal hernia suggested.No focal bowel wall thickening or surrounding inflammatory changes. Enteric contrast reaches the transverse c olon. Scattered sigmoid diverticula without evidence for acute diverticulitis. The appendix is within normal limits. No evidence of bowel obstruction. PERITONEUM: No evidence of pneumoperitoneum or free fluid. VASCULATURE: Mild atherosclerotic calcifications are present throughout the abdominal aorta and its b ranches. No abdominal aortic aneurysm. MUSCULOSKELETAL: No acute osseous abnormalities. No aggressive osseous lesion. Mild to moderate disc degeneration changes are present throughout the thoracolumbar spine. Grade 1 an terolisthesis of L4 on L5 without evidence of pars defects. LYMPH NODES: No evidence for lymphadenopathy. SOFT TISSUE/ABDOMINAL WALL: Unremarkable IMPRESSION: Stable right axillary lymph node measuring up to 6 mm short axis. Demonstrating mild FDG activity on prior PET/CT. Otherwise no evidence for metastasis within the remaining chest, abdomen or pelvis. [facility], , 11/25/2024 4:41 PM
== END | disposition home or self-care (01) ==
LOC: RADCTMAIN 13:58
PROVIDERS: ATTEND Internal Medicine Hematology & Oncology
DX: C43.4 Malignant melanoma of scalp and neck (principal); E03.9 Hypothyroidism, unspecified; I10 Essential (primary) hypertension; Z71.3 Dietary counseling and surveillance; R91.1 Solitary pulmonary nodule; I70.0 Atherosclerosis of aorta; Z98.890 Other specified postprocedural states
CPT/HCPCS: 82565; 84520; 71260; 74177; 36415; Q9967

== ENCOUNTER → 2025-04-29 | Outpatient (CLI) | payer MEDICARE, BC ==
[2025-04-29 10:12] LABS: African American GFR (CKD) 89 (>60 ml/min/1.73 sqM); Blood Urea Nitrogen 16 mg/dL (7-17); Non-African American GFR(CKD) 77 (>60 ml/min/1.73 sqM)
--- NOTE | 2025-04-29 12:01 | CT ---
EXAMINATION TYPE: CT ChestAbdPelvis w con CT DLP: 1910.6 mGycm, Automated exposure control for dose reduction was used. DATE OF EXAM: 04/29/2025 11:35 AM COMPARISON: CT chest abdomen and pelvis 11/25/2024, 06/14/2021, PET CT 08/22/2024 CLINICAL INDICATION:Female, 74 years old with history of C43.4 MELANOMA; [facility], MELANOMA Technique: Multiple axial images of the chest, abdomen, and pelvis were obtained following the intrav enous administration of 100 mL Isovue-300. Oral contrast was administered. Two-dimensional coronal an d sagittal reconstructions were obtained. Findings: CHEST: LUNGS/ PLEURA: No pleural effusion, pneumothorax, or focal consolidation. No suspicious pulmonary nod ule or mass. Scattered reticular scarring. No honeycombing. AIRWAY: Patent and unremarkable.. HEART: Size within normal limits.No pericardial effusion. Mild coronary artery calcifications. MEDIASTINUM: No evidence of adenopathy. VASCULATURE: No aortic aneurysm. Mild atherosclerotic calcification of the aorta and its branches. MUSCULOSKELETAL: Mild disc degeneration changes are present throughout the thoracolumbar spine. No ag gressive osseous lesion. SOFT TISSUES/LYMPH NODES: Stable mildly prominent right axillary lymph node measuring up to 6 mm shor t axis. No new axillary adenopathy. LOWER NECK: The thyroid is atrophic or surgically absent.. ABDOMEN: ABDOMEN LIVER: Right hepatic dome calcification granuloma. GALLBLADDER AND BILE DUCTS: Unremarkable. PANCREAS: Unremarkable. SPLEEN: Unremarkable. ADRENAL GLANDS: Unremarkable. KIDNEYS AND URETERS: No evidence of hydronephrosis or renal calculus. The kidneys enhance symmetrical ly. Stable bilateral renal cysts with largest within the upper pole the right kidney measured at 2.3 cm. No follow-up recommended. Contrast is demonstrated within both collecting systems on the delayed phase. PELVIS BLADDER: Unremarkable REPRODUCTIVE: Unremarkable. ABDOMEN & PELVIS STOMACH AND BOWEL: Postsurgical changes from gastric lap band. Small hiatal hernia suggested.No focal bowel wall thickening or surrounding inflammatory changes. Enteric contrast reaches the distal trans verse colon. Scattered sigmoid diverticula without evidence for acute diverticulitis. The appendix is within normal limits. No evidence of bowel obstruction. PERITONEUM: No evidence of pneumoperitoneum or free fluid. VASCULATURE: Mild atherosclerotic calcifications are present throughout the abdominal aorta and its b ranches. No abdominal aortic aneurysm. MUSCULOSKELETAL: No acute osseous abnormalities. No aggressive osseous lesion. Mild to moderate disc degeneration changes are present throughout the thoracolumbar spine. Grade 1 an terolisthesis of L4 on L5 without evidence of pars defects. LYMPH NODES: No evidence for lymphadenopathy. SOFT TISSUE/ABDOMINAL WALL: Unremarkable IMPRESSION: Stable subcentimeter right axillary lymph node which demonstrate mild FDG activity on prior PET/CT. O therwise no evidence for metastasis within the remaining chest, abdomen or pelvis. [facility], , 04/29/2025 11:59 AM
== END | disposition home or self-care (01) ==
LOC: RADCTMAIN 09:28
PROVIDERS: ATTEND Internal Medicine Hematology & Oncology
DX: C43.4 Malignant melanoma of scalp and neck (principal); I10 Essential (primary) hypertension; E03.9 Hypothyroidism, unspecified; R59.0 Localized enlarged lymph nodes; Z71.3 Dietary counseling and surveillance
CPT/HCPCS: 82565; 84520; 71260; 74177; 36415; Q9967